=== PATIENT | female | born 1965 | race Caucasian/White ===

== ENCOUNTER 2016-07-28 15:53 | Emergency (ER) | payer SELFPAY | END 2016-07-28 20:29 | disposition home or self-care (01) | LOC: ER 15:53 | DX: R42 Dizziness and giddiness (principal); Z79.899 Other long term (current) drug therapy; Z88.0 Allergy status to penicillin; Z88.1 Allergy status to other antibiotic agents; Z88.5 Allergy status to narcotic agent | CPT/HCPCS: 36415; 96361; 96374; 96375 ==